=== PATIENT | female | born 1995 | race Caucasian/White ===

== ENCOUNTER 2020-01-05 23:52 | Observation (INO) | payer MEDICAID ==
[~2020-01-05] VITALS: Ht 165.1 cm; Wt 81.6 kg
[2020-01-06] MEDS ORDERED: PNV1TABL50 PO (00:31)
== END 2020-01-06 02:26 | disposition home or self-care (01) ==
LOC: 8 EST LDRP 23:52
PROVIDERS: ADMIT Obstetrics & Gynecology; ATTEND Obstetrics & Gynecology
DX: Z34.93 Encounter for supervision of normal pregnancy, unspecified, third trimester (principal); Z3A.28 28 weeks gestation of pregnancy
CPT/HCPCS: 59025; 76805; G0378; 99281

== ENCOUNTER 2021-10-23 08:40 | Emergency (ER) | payer MEDICAID ==
[~2021-10-23] VITALS: Ht 167.6 cm; Wt 74.0 kg
[~2021-10-23 08:40] MED LIST: PNV1TABL50 PO
[2021-10-23] MEDS ORDERED: LIDOCAINE HCL 1% 20ML VIAL (Pyxis) INJ INFIL ONE (09:15)
[2021-10-23] MEDS ORDERED: BACITRACIN ZINC OINT UDPKT TOP ONE (10:45)
[2021-10-23] MEDS ORDERED: BO1 TP (10:55)
[2021-10-23 11:27] VITALS: BP 115/56
== END 2021-10-23 11:28 | disposition home or self-care (01) ==
LOC: ER 08:49
DX: S01.111A Laceration without foreign body of right eyelid and periocular area, initial encounter (principal); I49.9 Cardiac arrhythmia, unspecified; W01.0XXA Fall on same level from slipping, tripping and stumbling without subsequent striking against object, initial encounter; Y93.89 Activity, other specified; Y92.89 Other specified places as the place of occurrence of the external cause; Y99.8 Other external cause status
CPT/HCPCS: 12011; 93005; 99282; J3490

== ENCOUNTER 2021-10-25 12:03 | Emergency (ER) | payer MEDICAID ==
[~2021-10-25] VITALS: Ht 167.6 cm; Wt 79.0 kg
[~2021-10-25 12:03] MED LIST changes: +BO1 TP
[2021-10-25 12:14] VITALS: BP 116/73
== END 2021-10-25 14:23 | disposition home or self-care (01) ==
LOC: ER 13:23
DX: Z48.00 Encounter for change or removal of nonsurgical wound dressing (principal)
CPT/HCPCS: 99281

== ENCOUNTER 2021-10-29 11:26 | Emergency (ER) | payer MEDICAID ==
[~2021-10-29] VITALS: Ht 167.6 cm; Wt 74.0 kg
[2021-10-29 11:46] VITALS: BP 107/68
== END 2021-10-29 15:28 | disposition home or self-care (01) ==
LOC: ER 11:26
DX: S01.111D Laceration without foreign body of right eyelid and periocular area, subsequent encounter (principal); X58.XXXD Exposure to other specified factors, subsequent encounter
CPT/HCPCS: 99281